=== PATIENT | male | born 1970 ===

== ENCOUNTER 2019-01-13 09:01 | Inpatient (IN) | payer SELFPAY ==
[2019-01-13] MEDS ORDERED: NORCO 5/325 ONE (10:05)
[2019-01-13] MEDS ORDERED: NORCO 5/325 PO ONE (10:08)
[2019-01-13] MEDS ORDERED: NACL 0.9% 1000 ML IV ONE (10:26)
[2019-01-13] MEDS ORDERED: HumuLIN R IV ONE (10:56)
[2019-01-13] MEDS ORDERED: .VANCOMYCIN VIAL IV ONE (10:56)
[2019-01-13 11:06] LABS: Hematocrit 39.1 % (35.5-45.6); Hemoglobin 13.1 gm/dl (11.8-15.2); Mean Corpuscular HGB Conc 34 % (32-34); Mean Corpuscular Volume 88 fl (84-94); Platelet Count 445 K/mm3 (140-440); Red Blood Count 4.44 M/mm3 (3.65-5.03); Red Cell Distribution Width 13.4 % (13.2-15.2)
--- NOTE | 2019-01-13 11:22 | Emergency Department Report ---
- General Chief complaint: Skin/Abscess/Foreign Body Stated complaint: INFECTION ON BACK Time Seen by Provider: 01/13/19 10:20 Source: patient, family Mode of arrival: Ambulatory Limitations: Language Barrier - History of Present Illness Initial comments: 49-year-old male with no known past medical history presents to Hospital complains of left posterior thorax pain and redness for the past 10 days. Pain is constant and rated 9/10 in intensity and worse with palpation. No all eviating factors.. Patient is noted to have a large abscess/infection to this area. Patient denies known injury or bug bite. Last tetanus was 3 years ago. No known fever. Patient does not have a PMD. - Related Data Allergies Allergy/AdvReac Type Severity Reaction Status Date / Time No Known Allergies Allergy Verified 01/13/19 10:09 Abscess Boil HPI - HPI Chief Complaint: Skin/Abscess/Foreign Body Stated Complaint: INFECTION ON BACK Time Seen by Provider: 01/13/19 10:20 Allergies/Adverse Reactions: Allergies Allergy/AdvReac Type Severity Reaction Status Date / Time No Known Allergies Allergy Verified 01/13/19 10:09 ED Review of Systems ROS: Stated complaint: INFECTION ON BACK Other details as noted in HPI Comment: All other systems reviewed and negative ED Past Medical Hx - Past Medical History Previous Medical History?: No - Surgical History Past Surgical History?: No - Social History Smoking Status: Never Smoker Substance Use Type: None ED Physical Exam - General Limitations: Language Barrier - Other Other exam information: General: No limitations, patient is alert in no acute distress Head exam: Atraumatic, normocephalic Eyes exam: Normal appearance ENT: Moist mucous membrane, Neck exam: Normal inspection, full range of motion, no meningismus nontender Respiratory exam: Clear to auscultation bilateral, no wheezes, rales, crackles Cardiovascular: Tachycardia regular rhythm Abdomen: Soft, nondistended, and nontender, with normal bowel sounds, no rebound, or guarding Extremity: Full range of motion normal inspection no deformity Back: Normal Inspection, full range of motion, no tenderness Neurologic: Alert, oriented x3, cranial nerves intact, no motor or sensory deficit Psychiatric: normal affect, normal mood Skin: Patient has a large area of erythema on the right upper posterior thoracic area measuring 25 cm with at least a 13 cm area of induration with central fluctuant and mild areas of purulent drainage. ED Course Vital Signs 01/13/19 01/13/19 01/13/19 09:02 11:09 11:15 Temperature 97.9 F Pulse Rate 134 H Respiratory 18 Rate Blood Pressure 141/84 118/73 O2 Sat by Pulse 96 95 Oximetry 01/13/19 01/13/19 01/13/19 11:30 11:45 12:00 Temperature Pulse Rate Respiratory Rate Blood Pressure 112/69 112/69 115/72 O2 Sat by Pulse 96 95 96 Oximetry 01/13/19 01/13/19 01/13/19 12:15 12:17 12:30 Temperature Pulse Rate 108 H Respiratory 16 Rate Blood Pressure 113/70 110/71 O2 Sat by Pulse 95 95 95 Oximetry 01/13/19 13:01 Temperature Pulse Rate Respiratory Rate Blood Pressure 110/71 O2 Sat by Pulse 97 Oximetry - Reevaluation(s) Reevaluation #1: 01/13/19 10:46 Patient received Sibley 2 tablets prior to my evaluation. After my initial evaluation sepsis protocol initiated vancomycin ordered for large abscess/cellulitis. - Consultations Consultation #1: 01/13/19 12:05 case d/w Dr Stevens (surgeon) will place pt on schedule for surgery today. 01/13/19 12:41 Dr Stevens came down to eval pt prior to transport to ct ED Medical Decision Making - Lab Data Result diagrams: 01/13/19 10:46 01/13/19 11:56 Lab Results 01/13/19 01/13/19 01/13/19 Range/Units 09:13 10:46 10:46 WBC 24.9 H (4.5-11.0) K/mm3 RBC 4.44 (3.65-5.03) M/mm3 Hgb 13.1 (11.8-15.2) gm/dl Hct 39.1 (35.5-45.6) % MCV 88 (84-94) fl MCH 30 (28-32) pg MCHC 34 (32-34) % RDW 13.4 (13.2-15.2) % Plt Count 445 H (140-440) K/mm3 Add Manual Diff Complete Total Counted 100 Seg Neuts % (Manual) 85.0 H (40.0-70.0) % Band Neutrophils % 0 % Lymphocytes % (Manual) 6.0 L (13.4-35.0) % Reactive Lymphs % (Man) 0 % Monocytes % (Manual) 9.0 H (0.0-7.3) % Eosinophils % (Manual) 0 (0.0-4.3) % Basophils % (Manual) 0 (0.0-1.8) % Metamyelocytes % 0 % Myelocytes % 0 % Promyelocytes % 0 % Blast Cells % 0 % Nucleated RBC % Not Reportable Seg Neutrophils # Man 21.2 H (1.8-7.7) K/mm3 Band Neutrophils # 0.0 K/mm3 Lymphocytes # (Manual) 1.5 (1.2-5.4) K/mm3 Abs React Lymphs (Man) 0.0 K/mm3 Monocytes # (Manual) 2.2 H (0.0-0.8) K/mm3 Eosinophils # (Manual) 0.0 (0.0-0.4) K/mm3 Basophils # (Manual) 0.0 (0.0-0.1) K/mm3 Metamyelocytes # 0.0 K/mm3 Myelocytes # 0.0 K/mm3 Promyelocytes # 0.0 K/mm3 Blast Cells # 0.0 K/mm3 WBC Morphology Not Reportable Hypersegmented Neuts Not Reportable Hyposegmented Neuts Not Reportable Hypogranular Neuts Not Reportable Smudge Cells Not Reportable Toxic Granulation Not Reportable Toxic Vacuolation Not Reportable Dohle Bodies Not Reportable Pelger-Huet Anomaly Not Reportable Zurdo Rods Not Reportable Platelet Estimate Consistent w auto Clumped Platelets Not Reportable Plt Clumps, EDTA Not Reportable Large Platelets Not Reportable Giant Platelets Not Reportable Platelet Satelliting Not Reportable Plt Morphology Comment Not Reportable RBC Morphology Not Reportable Dimorphic RBCs Not Reportable Polychromasia Not Reportable Hypochromasia Not Reportable Poikilocytosis Not Reportable Anisocytosis 1+ Microcytosis Not Reportable Macrocytosis Not Reportable Spherocytes Not Reportable Pappenheimer Bodies Not Reportable Sickle Cells Not Reportable Target Cells Not Reportable Tear Drop Cells Not Reportable Ovalocytes Not Reportable Helmet Cells Not Reportable Singh-[place] Bodies Not Reportable [place] Rings Not Reportable [place] Cells Not Reportable Bite Cells Not Reportable Crenated Cell Not Reportable Elliptocytes Not Reportable Acanthocytes (Spur) Not Reportable Rouleaux Not Reportable Hemoglobin C Crystals Not Reportable Schistocytes Not Reportable Malaria parasites Not Reportable Khang Bodies Not Reportable Hem Pathologist Commnt No VBG pH (7.320-7.420) Sodium Potassium Chloride Carbon Dioxide Anion Gap BUN Creatinine Estimated GFR BUN/Creatinine Ratio Glucose POC Glucose 341 H (70-105) Lactic Acid 2.10 H* (0.7-2.0) mmol/L Calcium Total Bilirubin AST ALT Alkaline Phosphatase Total Protein Albumin Albumin/Globulin Ratio 01/13/19 01/13/19 01/13/19 Range/Units 10:46 10:46 11:56 WBC (4.5-11.0) K/mm3 RBC (3.65-5.03) M/mm3 Hgb (11.8-15.2) gm/dl Hct (35.5-45.6) % MCV (84-94) fl MCH (28-32) pg MCHC (32-34) % RDW (13.2-15.2) % Plt Count (140-440) K/mm3 Add Manual Diff Total Counted Seg Neuts % (Manual) (40.0-70.0) % Band Neutrophils % % Lymphocytes % (Manual) (13.4-35.0) % Reactive Lymphs % (Man) % Monocytes % (Manual) (0.0-7.3) % Eosinophils % (Manual) (0.0-4.3) % Basophils % (Manual) (0.0-1.8) % Metamyelocytes % % Myelocytes % % Promyelocytes % % Blast Cells % % Nucleated RBC % Seg Neutrophils # Man (1.8-7.7) K/mm3 Band Neutrophils # K/mm3 Lymphocytes # (Manual) (1.2-5.4) K/mm3 Abs React Lymphs (Man) K/mm3 Monocytes # (Manual) (0.0-0.8) K/mm3 Eosinophils # (Manual) (0.0-0.4) K/mm3 Basophils # (Manual) (0.0-0.1) K/mm3 Metamyelocytes # K/mm3 Myelocytes # K/mm3 Promyelocytes # K/mm3 Blast Cells # K/mm3 WBC Morphology Hypersegmented Neuts Hyposegmented Neuts Hypogranular Neuts Smudge Cells Toxic Granulation Toxic Vacuolation Dohle Bodies Pelger-Huet Anomaly Zurdo Rods Platelet Estimate Clumped Platelets Plt Clumps, EDTA Large Platelets Giant Platelets Platelet Satelliting Plt Morphology Comment RBC Morphology Dimorphic RBCs Polychromasia Hypochromasia Poikilocytosis Anisocytosis Microcytosis Macrocytosis Spherocytes Pappenheimer Bodies Sickle Cells Target Cells Tear Drop Cells Ovalocytes Helmet Cells Singh-[place] Bodies [place] Rings Juan Carlos Cells Bite Cells Crenated Cell Elliptocytes Acanthocytes (Spur) Rouleaux Hemoglobin C Crystals Schistocytes Malaria parasites Khang Bodies Hem Pathologist Commnt VBG pH 7.442 H (7.320-7.420) Sodium TNR Potassium TNR Chloride TNR Carbon Dioxide TNR Anion Gap TNR BUN TNR Creatinine TNR Estimated GFR TNR BUN/Creatinine Ratio TNR Glucose TNR POC Glucose (70-105) Lactic Acid 2.60 H* (0.7-2.0) mmol/L Calcium TNR Total Bilirubin TNR AST TNR ALT TNR Alkaline Phosphatase TNR Total Protein TNR Albumin TNR Albumin/Globulin Ratio TNR 01/13/19 Range/Units 11:56 WBC (4.5-11.0) K/mm3 RBC (3.65-5.03) M/mm3 Hgb (11.8-15.2) gm/dl Hct (35.5-45.6) % MCV (84-94) fl MCH (28-32) pg MCHC (32-34) % RDW (13.2-15.2) % Plt Count (140-440) K/mm3 Add Manual Diff Total Counted Seg Neuts % (Manual) (40.0-70.0) % Band Neutrophils % % Lymphocytes % (Manual) (13.4-35.0) % Reactive Lymphs % (Man) % Monocytes % (Manual) (0.0-7.3) % Eosinophils % (Manual) (0.0-4.3) % Basophils % (Manual) (0.0-1.8) % Metamyelocytes % % Myelocytes % % Promyelocytes % % Blast Cells % % Nucleated RBC % Seg Neutrophils # Man (1.8-7.7) K/mm3 Band Neutrophils # K/mm3 Lymphocytes # (Manual) (1.2-5.4) K/mm3 Abs React Lymphs (Man) K/mm3 Monocytes # (Manual) (0.0-0.8) K/mm3 Eosinophils # (Manual) (0.0-0.4) K/mm3 Basophils # (Manual) (0.0-0.1) K/mm3 Metamyelocytes # K/mm3 Myelocytes # K/mm3 Promyelocytes # K/mm3 Blast Cells # K/mm3 WBC Morphology Hypersegmented Neuts Hyposegmented Neuts Hypogranular Neuts Smudge Cells Toxic Granulation Toxic Vacuolation Dohle Bodies Pelger-Huet Anomaly Zurdo Rods Platelet Estimate Clumped Platelets Plt Clumps, EDTA Large Platelets Giant Platelets Platelet Satelliting Plt Morphology Comment RBC Morphology Dimorphic RBCs Polychromasia Hypochromasia Poikilocytosis Anisocytosis Microcytosis Macrocytosis Spherocytes Pappenheimer Bodies Sickle Cells Target Cells Tear Drop Cells Ovalocytes Helmet Cells Singh-[place] Bodies [place] Rings Juan Carlos Cells Bite Cells Crenated Cell Elliptocytes Acanthocytes (Spur) Rouleaux Hemoglobin C Crystals Schistocytes Malaria parasites Khang Bodies Hem Pathologist Commnt VBG pH (7.320-7.420) Sodium 127 L Potassium 3.5 L Chloride 89.2 L Carbon Dioxide 20 L Anion Gap 21 BUN 12 Creatinine 0.7 L Estimated GFR > 60 BUN/Creatinine Ratio 17 Glucose 331 H POC Glucose (70-105) Lactic Acid (0.7-2.0) mmol/L Calcium 7.6 L Total Bilirubin 0.30 AST 11 ALT 11 Alkaline Phosphatase 102 Total Protein 6.2 L Albumin 2.1 L Albumin/Globulin Ratio 0.5 - EKG Data -: EKG Interpreted by Ut EKG shows normal: sinus rhythm, axis (qrs 52), QRS complexes (qrsd 103), ST-T waves (no steim/t inv) Rate: tachycardia (114) - Radiology Data Radiology results: report reviewed CT chest with contrast. Extensive soft tissue edema along the right posterior chest wall without focal fluid collection abscess. May be related to cellulitis. Portion of right lateral chest wall not completely imaged - Medical Decision Making Patient has significant leukocytosis positive sepsis without signs of septic shock secondary to thoracic abscess and cellulitis. Treated with 30 mL per KG bolus of normal saline and vancomycin Patient is hyperglycemic and treated with insulin. Likely new onset diabetic. Hemoglobin A1c performed Tetanus up-to-date CT performed Surgery consulted with plan to go to OR today Patient will be admitted to the hospitalist service - Differential Diagnosis abscess, cellulitis, sepsis Critical Care Time: No Critical care attestation.: If time is entered above; I have spent that time in minutes in the direct care of this critically ill patient, excluding procedure time. ED Disposition Clinical Impression: Sepsis, Diabetes mellitus, new onset, Thoracic abscess, Cellulitis Disposition: OP ADMIT IP TO THIS HOSP Is pt being admited?: Yes Condition: Stable Time of Disposition: 12:41 (Dr Lal/hosp)
[2019-01-13] MEDS ORDERED: VANCOMYCIN IV ONE (11:30)
[2019-01-13] MEDS ORDERED: NACL 0.9% IV ONE (11:30)
[2019-01-13 11:34] LABS: Alanine Aminotransferase TNR units/L (7-56); BUN/Creatinine Ratio TNR; Blood Urea Nitrogen TNR mg/dL (9-20); Calcium TNR mg/dL (8.4-10.2)
[2019-01-13 11:35] LABS: Albumin TNR g/dL (3.9-5); Hemolysis Index TNR
[2019-01-13 11:45] LABS: Total Cells Counted 100
[2019-01-13 11:46] LABS: Basophils % (Manual) 0 % (0.0-1.8); Eosinophils % (Manual) 0 % (0.0-4.3)
[2019-01-13 11:47] LABS: Anisocytosis 1+; Platelet Estimate Consistent w Auto
[2019-01-13 12:28] LABS: Alanine Aminotransferase 11 units/L (7-56); Albumin 2.1 g/dL (3.9-5); BUN/Creatinine Ratio 17; Blood Urea Nitrogen 12 mg/dL (9-20); Calcium 7.6 mg/dL (8.4-10.2); Hemolysis Index 6
--- NOTE | 2019-01-13 13:34 | Cat Scan Report ---
FINAL REPORT EXAM: CT CHEST W CON HISTORY: left post thoracic abscess TECHNIQUE: CT of the chest was performed after the administration of intravenous contrast. 100 cc of Omnipaque 300 intravenous contrast were given. Reconstructions were included in the coronal and sagittal planes. PRIORS: None. FINDINGS: Great vessels: The thoracic aorta is normal in caliber. The great vessels are patent. Lungs and airways: No pleural effusion. No pulmonary nodules or masses. No airspace consolidation. Th e airways are patent. No bronchiectasis. Mild linear opacities in the right middle lobe may be relate d to atelectasis versus scarring. Mediastinum, heart, pericardium: No mediastinal lymphadenopathy. No cardiac chamber enlargement. No p ericardial effusion. Thoracic inlet, chest wall, axilla: There is extensive subcutaneous edema in the right posterior ches t soft tissues. No focal fluid collection or abscess is identified. Note that the entire aspect of th e right lateral chest wall was not completely included on the study. The visualized portions of the t hyroid gland demonstrate no focal lesion. No axillary lymphadenopathy. Upper abdomen: The visualized structures demonstrate no specific abnormality. Bones: Mild degenerative changes are seen in the thoracic spine. IMPRESSION: Extensive soft tissue edema along the right posterior chest wall without focal fluid collection or ab scess may be related to cellulitis. Note that a portion of the right lateral chest wall was not compl etely included on the study.
--- NOTE | 2019-01-13 13:57 | Progress Note ---
Assessment and Plan Full consult dictated. 49 y/o DM male. Large posterior upper chest wall abscess with surrounding cellulitis. Keep pt NPO will proceed with debridement and I&D Objective Vital Signs - 12hr 01/13/19 01/13/19 01/13/19 09:02 11:09 11:15 Temperature 97.9 F Pulse Rate 134 H Respiratory 18 Rate Blood Pressure 141/84 118/73 O2 Sat by Pulse 96 95 Oximetry 01/13/19 01/13/19 01/13/19 11:30 11:45 12:00 Temperature Pulse Rate Respiratory Rate Blood Pressure 112/69 112/69 115/72 O2 Sat by Pulse 96 95 96 Oximetry 01/13/19 01/13/19 01/13/19 12:15 12:17 12:30 Temperature Pulse Rate 108 H Respiratory 16 Rate Blood Pressure 113/70 110/71 O2 Sat by Pulse 95 95 95 Oximetry 01/13/19 13:01 Temperature Pulse Rate Respiratory Rate Blood Pressure 110/71 O2 Sat by Pulse 97 Oximetry - Labs 01/13/19 10:46 01/13/19 11:56 Diabetes panel 01/13/19 01/13/19 Range/Units 10:46 11:56 Sodium TNR 127 L Potassium TNR 3.5 L Chloride TNR 89.2 L Carbon Dioxide TNR 20 L BUN TNR 12 Creatinine TNR 0.7 L Glucose TNR 331 H Calcium TNR 7.6 L AST TNR 11 ALT TNR 11 Alkaline Phosphatase TNR 102 Total Protein TNR 6.2 L Albumin TNR 2.1 L Calcium panel 01/13/19 01/13/19 Range/Units 10:46 11:56 Calcium TNR 7.6 L Albumin TNR 2.1 L Pituitary panel 01/13/19 01/13/19 Range/Units 10:46 11:56 Sodium TNR 127 L Potassium TNR 3.5 L Chloride TNR 89.2 L Carbon Dioxide TNR 20 L BUN TNR 12 Creatinine TNR 0.7 L Glucose TNR 331 H Calcium TNR 7.6 L Adrenal panel 01/13/19 01/13/19 Range/Units 10:46 11:56 Sodium TNR 127 L Potassium TNR 3.5 L Chloride TNR 89.2 L Carbon Dioxide TNR 20 L BUN TNR 12 Creatinine TNR 0.7 L Glucose TNR 331 H Calcium TNR 7.6 L Total Bilirubin TNR 0.30 AST TNR 11 ALT TNR 11 Alkaline Phosphatase TNR 102 Total Protein TNR 6.2 L Albumin TNR 2.1 L
[2019-01-13] MEDS ORDERED: LACTATED RINGERS 1,000 ML ONE (14:46)
[2019-01-13] MEDS ORDERED: HumuLIN R ONE (14:52)
[2019-01-13] MEDS ORDERED: NACL 0.9% 1000 ML 1,000 ML ONE ×2 (14:55→17:18)
[2019-01-13] MEDS ORDERED: MARCAINE-EPI 0.5%-1:200,000 INFILTRATI ONE ×2 (14:58→16:38)
[2019-01-13] MEDS ORDERED: AMIDATE IV ONE (15:05)
[2019-01-13] MEDS ORDERED: XYLOCAINE MPF 2% ONE (15:05)
[2019-01-13] MEDS ORDERED: SUBLIMAZE ONE ×2 (15:05→16:25)
[2019-01-13] MEDS ORDERED: ZEMURON IV ONE (15:05)
[2019-01-13] MEDS ORDERED: ZOSYN/NS 4.5GM/100ML 4.5 GM/100 ML VIAL IV SCH ×2 (15:06→22:00)
[2019-01-13] MEDS ORDERED: NEO SYNEPHRINE ONE (15:09)
[2019-01-13 15:34] LABS: Color,Urine Yellow (Yellow)
[2019-01-13 15:35] LABS: Bilirubin,Urine NEG (Negative); Blood,Urine NEG (Negative); Mucus,Urine FEW /HPF; RBC,Urine < 1.0 /HPF (0.0-6.0); Urobilinogen,Urine < 2.0 mg/dL (<2.0); WBC,Urine < 1.0 /HPF (0.0-6.0)
[2019-01-13] MEDS ORDERED: HYDROGEN PEROXIDE ONE (16:27)
[2019-01-13] MEDS ORDERED: MORPHINE IV PRN (16:33)
[2019-01-13] MEDS ORDERED: ZOFRAN IV PRN (16:33)
[2019-01-13] MEDS ORDERED: PERCOCET 5/325 PO PRN (16:33)
[2019-01-13] MEDS ORDERED: HYDROGEN PEROXIDE TP ONE (16:35)
[2019-01-13] MEDS ORDERED: KCL 20 MEQ in LACTATED RINGERS 1,000 ML IV SCH (16:45)
--- NOTE | 2019-01-13 16:52 | Anesthesia Consultation ---
Anesthesia Consult and Med Hx Date of service: 01/13/19 - Airway Anesthetic Teeth Evaluation: Poor ROM Head & Neck: Adequate Mental/Hyoid Distance: Adequate Mallampati Class: Class II Intubation Access Assessment: Probably Good - Pulmonary Exam CTA: Yes - Cardiac Exam Cardiac Exam: RRR - Pre-Operative Health Status ASA Pre-Surgery Classification: ASA3 Proposed Anesthetic Plan: General - Pre-Anesthesia Comment Pre-Anesthesia Comments: Com[place]an speaking only; used phone catalyst impregnator to elicit HPI and conduct anesthesia evaluation - Additional Comments Anesthesia Medical History Comments: 49 y.o.m poorly controlled type II DM (no no known pmh p/t with back pain and redness for 10 days; noted to have large abscess. remains afebrile but has leukocytosis
[2019-01-13] MEDS ORDERED: DIPRIVAN 10 MG/ML IV ONE (17:09)
[2019-01-13] MEDS ORDERED: ADRENALIN ONE (18:00)
[2019-01-13] MEDS ORDERED: MAGNESIUM SULFATE ONE (18:00)
[2019-01-13] MEDS ORDERED: ATROPINE 0.1% (CARDIAC) ONE (18:00)
--- NOTE | 2019-01-13 18:22 | Anesthesia Day of Surgery ---
Anesthesia Day of Surgery - Day of Surgery Patient Examined: Yes (abscess located on back) Patient H&P Reviewed: Yes (limited information provided in paper chart and review ) Patient is NPO: Yes Beta Blockers: No Cardiac Clearance: No Pulmonary Clearance: No Rick's Test: N/A
--- NOTE | 2019-01-13 18:35 | Death Note ---
Note Date of : 01/13/19 Time of : 18:00 Time Pronounced: 18:00 - Preliminary Cause of (problem) (1) PEA (Pulseless electrical activity) Preliminary cause of (2) Sepsis Qualifiers: Sepsis type: sepsis due to unspecified organism Qualified Code(s): A41.9 - Sepsis, unspecified organism Preliminary cause of 49 year old Thai speaking only male with unknown medical history except for poorly controlled type II DM (hgA1c - 11.5) is s/p I&D of suspected abscess in left posterior. In preoperative holding area, patient was seen by anesthesiologist and evaluated for surgery. He was afebrile (temp 99), glucose> 450s, WBC 25K, lactic acid 2.9, and pressures were otherwise normal 110-120 systolic),. lethargic Patient was intubated with 7.5 ETT with MAC 4 blade under direct laryngoscopy. Additional IV access was completed and Arterial line for suspected early sepsis picture or diabetic ketoacidosis was attempted (but later aborted). Patient was tachycardic throughout procedure suggesting early sepsis. Per report by Yash (anesthesiology certified medical technician assistant), patient was extubated with full dose of reversal agents and had sustained tetany with train of four 4/4. Extubation criteria was met with patient having appropriate pulmonary mechanics (i.e breathing adequate tidal volumes (6-8cc/kg), RR 12-15), following commands with good muscle strength, and hemodynamically stable. Patient remained tachycardic in 140s. Attending anesthesiologist called at 1710 by PACU nurse when patient appeared to have difficulty moving air. When questioned patient appeared to move air well but became labored. O2 sat was 100% and patient was tachycardic now into the 170s. Patient switched from face mask to bedside ambubag and patient repositioned to supine in preparation for intubation. Attending asked team to call for help and get equipment for intubation. During setup, patient breathing became more labored and O2 sat worsened to low 90s. Addtionally, attending called for someone to grab an available ASTRONOMY DEPARTMENT CHAIR in the adjacent suite to assist. Patient was intubated with unstylated 7.5 ETT with direct laryngoscopy; colormetric ETCO2, symmetric chest rise, and bilateral breath sounds confirmed endotracheal placement. Patient became unresponsive and bradycardic and ACLS initiated at 1715 for a total of 45 minutes before announcing time of at 1800. During 14 rounds of CPR, patient received 6 amp of epinephrine, and 0.5mg atropine X 2. Patient was shocked twice when pulse was noted and CPR resumed throughout code event. time of announced by attending at 1800 (3) Diabetes mellitus, new onset Preliminary cause of
[2019-01-13 19:03] VITALS: BP 93/14
--- NOTE | 2019-01-13 19:45 | Operative Report ---
PREOPERATIVE DIAGNOSIS: Large upper back abscess with surrounding cellulitis and sepsis. POSTOPERATIVE DIAGNOSIS: Large upper back abscess with surrounding cellulitis and sepsis. PROCEDURE: Incision and drainage and debridement of large abscess of upper back. SURGEON: Toan Stinson MD ANESTHESIA: General. ESTIMATED BLOOD LOSS: Minimal. DRAINS: None. COMPLICATIONS: None. DESCRIPTION OF PROCEDURE: The patient was taken to the operating room, prepped and draped in the usual sterile fashion. A #11 blade was used to incise skin and subcutaneous. Fair amount of purulence and bloody drainage were noted. Aerobic and anaerobic cultures were taken. Digital manipulation was then used to dissect the entire cavity and opened up all the micro loculations. Some more purulence was noted. The abscess cavity was then copiously irrigated with 50% Betadine peroxide solution. Area was inspected for bleeding and noted to be dry. The abscess cavity was quite deep and extended deep down into the muscles. The cavity was then packed with 2-inch iodoform gauze. Fluff and pressure dressings applied. A 0.5% Marcaine was infiltrated over the skin edges for postoperative pain relief. The patient tolerated the procedure well and left OR in stable condition. JOB# [id number] SUMMER/GIOVANNA
--- NOTE | 2019-01-13 21:42 | History and Physical Report ---
CHIEF COMPLAINT: Abscess on the left upper back. HISTORY OF PRESENT ILLNESS: This is a 49-year-old with no significant past medical history, comes in for redness and swelling on the left scapular region. Large infection and abscess for the last 10 days. No trauma or injury. Spontaneously happened. PAST MEDICAL HISTORY: None. PAST SURGICAL HISTORY: None. SOCIAL HISTORY: Does not smoke. No alcohol, no recreational drugs. FAMILY HISTORY: Noncontributory. REVIEW OF SYSTEMS: Significant for large area of erythema on the right upper posterior thoracic area, measuring 25 cm with at least 13 cm area of induration with central being fluctuate and mild areas of purulent discharge. Otherwise, review of systems negative. PHYSICAL EXAMINATION: GENERAL: Middle-aged male, cooperative during examination. VITAL SIGNS: Temperature 97.9, blood pressure 141/84, sats are 96%, pulse is 134. HEENT: Unremarkable. NECK: Supple, no lymphadenopathy, no thyromegaly. LUNGS: Clear to auscultation and percussion. Good air entry. CARDIOVASCULAR: S1, S2 heard. No gallop, no murmur, no rub. Apical impulse in left fifth intercostal space and midclavicular line. CHEST: Soft tissue swelling on the right posterior chest wall, extensive, measuring about 25 cm x 13 cm. Erythema present. Fluctuation present in the middle. CENTRAL NERVOUS SYSTEM: Alert and oriented x 4, nonfocal exam. LABORATORY DATA: Significant for white count of 24,900, H of H of 13.1 and 39.1, platelet count of 445,000. Sodium is 127, potassium is 3.5, chloride is 89.2, bicarbonate is 20, BUN and creatinine 12 and 0.7. Lactic acid is 2.6, AST is 11, ALT is 11, alkaline phosphatase is 102, total protein is 6.2, albumin is 2.1. Urine specific gravity is 1.032. CT of the chest as mentioned, extensive soft tissue swelling on the right upper posterior thoracic wall. No focal fluid collection or abscess, may reflect cellulitis. ASSESSMENT AND PLAN: 1. Severe abscess, right posterior chest. The patient is being taken to the operating room for incision and drainage under general anesthesia. The patient was initiated on Zosyn and vancomycin. Dr. Stinson, surgeon consulted. The patient medically cleared. 2. Hyperglycemia coverage. The patient may have diabetes, which may have precipitated the abscess. We will do high dose sliding scale insulin coverage and initiated on long-acting insulin. Hemoglobin A1c 11.5, which indicates that the patient has diabetes for some time at least for 3 months to 1 year. 3. Sepsis. The patient has a high white count. The patient with urosepsis. High lactic acid of 2.6. IV Zosyn and IV vancomycin. IV fluids. 4. Hyponatremia, probably secondary to sepsis and fluid overload. IV normal saline for now. 5. Hypokalemia, supplemented. 6. Deep venous thrombosis prophylaxis, Lovenox 40 mg subcutaneous daily. In summary, the patient has abscess, sepsis, hyponatremia, newly on new onset diabetes. The patient does not have diabetes before. A1c is high at 11.5 and hyponatremia, hypoalbuminemia. The patient also has malnutrition. The patient has multiple medical problems. JOB# [id number] JOSSELYN/NTS
--- NOTE | 2019-01-13 21:44 | Discharge Summary ---
SUMMARY HOSPITAL COURSE: A 49-year-old male was admitted for high blood glucose levels and abscess on the right posterior wall of the chest. A large abscess about measuring 25 cm x 14 cm. The patient was taken to surgery from the Emergency Room. The patient's blood glucose levels were high, lactic acid was high. The patient also has hyponatremia. The patient had poorly controlled of her sugars were of concern. The patient has a high lactic acid. The patient was being taken for the surgery. The patient was given IV Zosyn and vancomycin. The patient was taken to the OR. The patient went for the surgery and when the patient returned from surgery, the patient with shallow breaths. He was gasping and making stridor-like sounds. The patient was nauseous. The patient was taking shallow breaths. ACLS protocol was initiated. The patient was intubated by the anesthesiologist. The patient did not make it in spite of the ACSL protocol. The patient . CAUSE OF : Sepsis and right chest wall abscess posteriorly. Postop complications. Anesthesia complications. The patient with severe respiratory failure. CAUSE OF : Respiratory failure secondary to sepsis and right posterior wall of the chest and uncontrolled diabetes. Date of admission was 01/13/2019 and date of expiration is 01/13/2019. The patient was pronounced around 1759 hours. JOB# [id number] JOSSELYN/GIOVANNA
--- NOTE | 2019-01-14 04:42 | Consultation ---
REASON FOR CONSULTATION: Large upper back abscess. HISTORY OF PRESENT ILLNESS: The patient is a 49-year-old gentleman, who has been complaining of right upper back pain for approximately one week. He also states he has been running a fever. PAST MEDICAL HISTORY: Negative. PAST SURGICAL HISTORY: Negative. ALLERGIES: No known allergies. MEDICATIONS: No medications. FAMILY HISTORY: Negative. SOCIAL HISTORY: Occasional ethanol intake and denies any smoking. PHYSICAL EXAMINATION: GENERAL: At this time revealed the patient to be awake, alert, cooperative, in mild discomfort, but no acute distress. VITAL SIGNS: Shown to be afebrile at present in the ER at 97.9, blood pressure of 110/71, and respirations are 16. BACK: The patient is currently lying in a prone position. There is very large erythematous, tender mass over the right scapular region consistent with a large abscess. He also has surrounding cellulitis. The mass itself measured approximately 14 x 16 cm. LABORATORY DATA: Lab work at present includes a CBC, which shows a white count of 24.9, H and H are 13 and 39. Electrolytes are abnormal including a sodium of 127, potassium is 3.5, chloride is low at 89, BUN is 12, and creatinine is 0.7. Glucose is very high at 331. The patient is not familiar that he is diabetic, so maybe newly diagnosed diabetic. Lactic acid is also high at 2.6. A CT scan of the abdomen was performed. The impression reads extensive soft tissue edema along the right posterior chest wall consistent with possible abscess and cellulitis. ASSESSMENT AND PLAN: 1. At this time is that of a 49-year-old probably newly diagnosed diabetic. 2. Large posterior chest wall abscess. Recommendations are to keep the patient n.p.o. We will proceed with incision and drainage and debridement of large posterior chest wall abscess. Risk, indication and complications have been reviewed with the patient, who understands and has signed his consent. JOB# [id number] SUMMER/GIOVANNA
[2019-01-14] MEDS ORDERED: NACL 0.9% 1000 ML ONE (13:53)
== END 2019-01-13 18:00 | DRG 871 ==
LOC: ED 09:01 → 3A 12:42
PROVIDERS: ADMIT Internal Medicine; ATTEND Internal Medicine
PROC: 0W9K0ZZ Drainage of Upper Back, Open Approach (ICD-10-PCS; principal; 2019-01-13)
PROC: 5A12012 Performance of Cardiac Output, Single, Manual (ICD-10-PCS; 2019-01-13)
DX: A41.9 Sepsis, unspecified organism (principal); J86.9 Pyothorax without fistula; J96.90 Respiratory failure, unspecified, unspecified whether with hypoxia or hypercapnia; L02.213 Cutaneous abscess of chest wall; E87.1 Hypo-osmolality and hyponatremia; L03.313 Cellulitis of chest wall; E46 Unspecified protein-calorie malnutrition; L02.212 Cutaneous abscess of back [any part, except buttock and flank]; E87.6 Hypokalemia; E88.09 Other disorders of plasma-protein metabolism, not elsewhere classified; E11.65 Type 2 diabetes mellitus with hyperglycemia; Z68.25 Body mass index [BMI] 25.0-25.9, adult
CPT/HCPCS: 36415; 36620; 71260; 80053; 81001; 82140; 82805; 82962; 83036; 85007; 85025; 87040; 87075; 87076; 87086; 87116; 87186; 93005; 93010; 96374; 99285; G0378; J0171; J0461; J1815; J2370; J2405; J2543; J2704; J3010; J3370; J3475; J7030; J7050; J7120